=== PATIENT | female | born 1950 | race Caucasian/White ===

== ENCOUNTER 2018-01-10 19:52 | Emergency (ER) | payer MEDICARE ==
[2018-01-10] MEDS ORDERED: IBUPROFEN 600 MG TABLET PO ONE (20:34)
[2018-01-10] MEDS ORDERED: ACETAMINOPHEN 325 MG TABLET PO ONE (20:34)
[2018-01-10] MEDS ORDERED: LIDOCAINE 5% (700 MG) TRANSDERMAL ADH..PATCH TP ONE (20:37)
--- NOTE | 2018-01-10 20:39 | ER Document Report ---
ED General - General Chief Complaint: Fall Stated Complaint: LEFT LEG PAIN Time Seen by Provider: 01/10/18 19:56 Notes: Patient is a 67-year-old female with a past medical history of a prior CVA, hypertension, who presents after having a mechanical fall while taking her trash. Patient states that she lost her balance and twisted her knee striking it on the pavement. She states that since that time she has had a severe, constant, throbbing pain to her left knee just below the level of the patella. Any attempt at movement worsens the pain. She states the fentanyl provided by EMS improve the pain. She denies any history of similar injury in the past. She denies any injury to any of the location of her body. She does arrive by EMS. TRAVEL OUTSIDE OF THE [place] IN LAST 30 DAYS: No - Related Data Allergies/Adverse Reactions: No Known Drug Allergies Allergy (Verified 01/10/18 20:03) Past Medical History - General Information source: Patient - Social History Smoking Status: Never Smoker Chew tobacco use (# tins/day): No Frequency of alcohol use: None Drug Abuse: None Lives with: Family Family History: Reviewed & Not Pertinent Patient has suicidal ideation: No Patient has homicidal ideation: No Renal/ Medical History: Denies: Hx Peritoneal Dialysis Review of Systems - Review of Systems Notes: Constitutional: Negative for fever. Eyes: Negative for visual changes. ENT: Negative for facial injury Cardiovascular: Negative for chest injury. Respiratory: Negative for shortness of breath. Gastrointestinal: Negative for abdominal injury. Genitourinary: Negative for genital injury Musculoskeletal: Positive for left leg injury Skin: Negative for laceration/abrasions. Neurological: Negative for head injury. Physical Exam - Vital signs Vitals: Temp Pulse Resp BP Pulse Ox 97.8 F 88 24 H 151/80 H 95 01/10/18 20:02 01/10/18 20:02 01/10/18 20:02 01/10/18 20:02 01/10/18 20:02 Interpretation: Hypertensive Notes: PHYSICAL EXAMINATION: GENERAL: Well-appearing, no acute distress. HEAD: Atraumatic, normocephalic. EYES: Pupils equal round and reactive to light, extraocular movements intact, sclera anicteric, conjunctiva are normal. ENT: nares patent, no oral pharyngeal trauma. No hemotympanum, no Pierce's sign , no raccoon eyes. NECK: No midline cervical spine tenderness. Patient able to move their head to 45 bilaterally without any discomfort. LUNGS: Breath sounds clear to auscultation bilaterally and equal. No wheezes rales or rhonchi. HEART: Regular rate and rhythm without murmurs. CHEST WALL: No ecchymosis over the chest wall. ABDOMEN: Soft, nontender, normoactive bowel sounds. No guarding, no rebound. No seatbelt sign. EXTREMITIES: Limited range of motion of the left knee secondary to pain with flexion although the knee is able to be bent to 90 passively, there is a horizontal 3 cm bruise over the level of the proximal tibia. No obvious deformity. BACK: No midline spinal tenderness, step-offs, or deformities. NEUROLOGICAL: Face symmetric. Tongue protrudes midline. Extraocular motions intact. Pupils are 2 mm and equally reactive. Normal speech. 5 out of 5 strength in both the distal and proximal upper and lower extremities bilaterally. Sensation is grossly intact throughout. Finger to nose testing normal. Pronator drift normal. PSYCH: Normal mood, normal affect. SKIN: Warm, Dry, normal turgor, no rashes or lesions noted. Course - Re-evaluation Re-evalutation: 01/10/18 20:35 Presentation of a well appearing elderly patient in no acute distress, vitals within normal limits after a mechanical fall. Patient denies a syncopal episode as the cause for today's fall. No focal neurologic deficits on exam, no evidence of basilar skull fracture on exam without evidence of hemotympanum, raccoon eyes, or periauricular hematoma. No papilledema. Patient is not on anticoagulation. GCS is 15. No loss of consciousness. No episodes of vomiting. Patient also denies hitting her head or neck. Will therefore not proceed with CT of the head. Patient denies any neck pain and likewise did not sustain any trauma to the cervical spine. She is nexus criteria negative and no CT imaging will be obtained. Patient's main complaint is that she has left knee pain. Examination of the knee shows limited range of motion secondary to pain with inability to flex the knee. She has no obvious laxity of the knee. There is bruising to the inferior aspect below the patella. RAMESH greater than 0.9 and I do not clinically suspect a vascular injury. Strong 2+ DP pulse, able to move all digits of the left foot without difficulty. She has no pain on examination of the hip, ankle, femur or distal tib-fib regions of the left extremity. Left knee x-ray does show a proximal tibial as well as possible proximal fibular fracture. Chest and abdominal exam are benign without any focal tenderness, shortness of breath, or bruising over the chest or abdominal wall. Patient has no flank tenderness. Patient denies any complaints to any other location of the left knee today. The remainder the examination is otherwise appropriate and unremarkable. Patient has been placed in a long-leg posterior splint for immobilization of the area and provided crutches. I have instructed her that she will need to follow-up with orthopedic surgery within the next 48-72 hours. We have specifically reviewed precautions that would indicate possible compartment syndrome and the need to immediately return for these symptoms. At this time will discharge with return precautions and follow- up recommendations. Verbal discharge instructions given a the bedside and opportunity for questions given. Medication warnings reviewed. Patient is in agreement with this plan and has verbalized understanding of return precautions and the need for orthopedic surgical follow-up in the next 24-72 hours. - Vital Signs Vital signs: Temp Pulse Resp BP Pulse Ox 97.8 F 88 24 H 151/80 H 95 01/10/18 20:02 01/10/18 20:02 01/10/18 20:02 01/10/18 20:02 01/10/18 20:02 - Diagnostic Test Radiology reviewed: Image reviewed, Reports reviewed Radiology results interpreted by me: 01/10/18 21:47 Left knee x-ray: Proximal tibial and fibular fracture - EKG Interpretation by Me Additional EKG results interpreted by me: 01/10/18 20:37 Sinus rhythm. Rate 83. No ST elevations or depressions. QTC 503. Discharge - Discharge Clinical Impression: Fall Qualifiers: Encounter type: initial encounter Qualified Code(s): W19.XXXA - Unspecified fall, initial encounter Fracture of proximal end of left tibia and fibula Qualifiers: Encounter type: initial encounter Fracture type: closed Qualified Code(s): S82.102A - Unspecified fracture of upper end of left tibia, initial encounter for closed fracture; S82.832A - Other fracture of upper and lower end of left fibula, initial encounter for closed fracture; S82.832A - Other fracture of upper and lower end of left fibula, initial encounter for closed fracture Condition: Good Disposition: HOME, SELF-CARE Additional Instructions: Your x-ray does show a break to your proximal tibia as well as likely your proximal fibula. You will need to follow-up with orthopedic surgery for evaluation of possible surgical correction of the area. For your pain: Take ibuprofen 600 mg and acetaminophen 1000 mg every 6 hours together as needed for pain. If this does not control your pain you may take 15 mg of oral morphine every 4 hours as needed. Please be very careful about using the oral morphine and only use this for severe pain. Continue to apply ice to the area is much your able. Please return immediately if you develop weakness, numbness, worsening pain to the area, or any other symptoms that are concerning to you. Prescriptions: Morphine Sulfate [Morphine Ir 15 mg Tablet] 15 mg PO Q4HP PRN #12 tablet PRN Reason: Referrals: DOMINICK MASTERS MD [ACTIVE STAFF] - Follow up in 3-5 days
--- NOTE | 2018-01-10 21:19 | RADIOLOGY REPORT (SQ) ---
EXAM DESCRIPTION: KNEE LEFT 2 VIEWS COMPLETED DATE/TIME: 01/10/2018 9:02 pm REASON FOR STUDY: fall, eval pain, swelling COMPARISON: None. NUMBER OF VIEWS: Two views. TECHNIQUE: AP and lateral radiographic images acquired of the left knee. LIMITATIONS: Patient unable to achieve standard positioning due to pain. FINDINGS: MINERALIZATION: Normal. BONES: Comminuted fracture of the proximal tibia with intra-articular extension at the medial tibial plateau. Likely proximal fibular fracture is well. . JOINT: Joint effusion not well characterized due to limitations of patient positioning. SOFT TISSUES: No soft tissue swelling. No radio-opaque foreign body. OTHER: No other significant finding. IMPRESSION: Comminuted fracture of the proximal tibia noting intra-articular extension. Probable pr oximal fibular fracture. TECHNICAL DOCUMENTATION: JOB ID: [id number] [employer]- All Rights Reserved Reading location - IP/workstation name: [email or web address]
--- NOTE | 2018-01-10 22:07 | EKG REPORT ---
SEVERITY:- BORDERLINE ECG - SINUS RHYTHM BORDERLINE PROLONGED QT INTERVAL : Confirmed by: Kg Cool MD 10-Jan-2018 22:07:05
[2018-01-10 22:47] VITALS: BP 109/68
== END 2018-01-10 23:00 | disposition home or self-care (01) ==
LOC: ER 19:52
DX: S82.192A Other fracture of upper end of left tibia, initial encounter for closed fracture (principal); S82.832A Other fracture of upper and lower end of left fibula, initial encounter for closed fracture; M25.562 Pain in left knee; W10.9XXA Fall (on) (from) unspecified stairs and steps, initial encounter; Y93.89 Activity, other specified; I10 Essential (primary) hypertension
CPT/HCPCS: 93005; 99284; 73560; 93010; 29505; A9270 ×2